=== PATIENT | male | born 1990 | race Caucasian/White ===

== ENCOUNTER 2016-04-23 07:37 | Emergency (ER) | payer SELFPAY ==
[2016-04-23 07:48] VITALS: BMI 24.0
[2016-04-23] MEDS ORDERED: ONDANSETRON HCL 4 MG ODT TAB PO ONE (07:50)
--- NOTE | 2016-04-23 08:49 | EDPRACDOC ---
- General Information Chief Complaint: Nausea,Vomiting,Diarrhea Stated Complaint: N/V Time Seen by Provider: 04/23/16 07:47 Information Source: Patient Mode Of Arrival: Car Home Medications: Home Medications Promethazine [Phenergan] 25 mg PO Q6H PRN #10 tab 04/23/16 Allergies/Adverse Reactions: Allergies Allergy/AdvReac Type Severity Reaction Status Date / Time No Known Allergies Allergy Verified 04/23/16 07:53 - History of Present Illness Onset: FRIDAY HPI: PT SAID THAT HE DEVELOPED N/V/D ON 04/21. PT SAID IT WAS A LITTLE BETTER YESTERDAY, BUT HE STILL HAD VOMITING THIS AM. PT HAD ABD PAIN ON THE , BUT NO PAIN NOW. Symptoms Occured: Reports: Spontaneous Duration: Reports: Intermittent Pain Severity: None Associated Signs and Symptoms: Reports: Nausea, Vomiting, Diarrhea Oral Intake: Decreased Urinary Output: Normal ED Past Medical History - History Reviewed No Past Medical History: Yes Patient has no past medical history - Patient Medical History Psychological History: Denies: Depression Surgical History: Reports: No Significant History - Social Medical History Smoking Status: Never smoker ETOH: None Substance Abuse: None Lives In: Home EDM Review of Systems - Review of Systems ROS Negative Except as Marked: Yes All systems reviewed and were negative except as marked Gastrointestinal: Diarrhea, Nausea, Vomiting - Physical Exam Constitutional: Alert (Awake), No apparent distress Oriented to: Time, Person, Place Last recorded Vital Signs: Last Vital Signs Temp 97.9 F 04/23/16 07:45 Pulse 90 04/23/16 07:45 Resp 18 04/23/16 07:45 BP 137/68 04/23/16 07:45 Pulse Ox 94 04/23/16 07:45 Oxygen Pulse Oxygen Saturation 94 O2 Device Room Air Oxygen Flow Rate Fraction of Inspired Oxygen ( FIO2) - HEENT Head: Normal ( normocephalic) Eye Exam: Normal (PERRL, EOMI, Sclera white) Oropharynx: Normal (Pharynx:Moist without exudate,Gums-no swelling) ENT EAC: Normal TMJ: Normal Nose: No Symptoms Reported (septum midline) Neck: Normal (FROM, trachea at midline) - Respiratory/Cardiovascular Respiratory: Normal - CTA (BBS clear to auscultation without adventitious sounds ) Cardiovascular: Normal (RRR without murmur, gallop or rub) - GI Auscultation: Normal (NABS) Palpation: Normal (Soft,No rebound or guarding, non distended) Tenderness: Non tender Victor's Sign: Negative - Musculoskeletal Back: Normal (Non-Tender) Extremities: Normal (Normal tone, Pulses 2+ No cyanosis or edema, FROM) - Re-evaluation Re-evaluation 1 Re-evaluation Time: 08:50 (TOLERATING POS) Decision Time to Discharge: 08:50 - Departure Yes I personally saw and evaluated the patient. Disposition: Home Condition: Fair Final Diagnosis: Nausea and vomiting, Dehydration, Diarrhea Instructions: Acute Diarrhea (ED), Acute Nausea and Vomiting (ED) Education/Counseling Given To: Patient Education/Counseling Given Regarding: Diagnosis, Treatment, Follow Up Referrals: None,No Provider [Primary Care Provider] - One Week Robbi Saavedra II, MD [Staff Physician] - One Week Prescriptions: New Promethazine [Phenergan] 25 mg PO Q6H PRN #10 tab PRN Reason: Nausea/Vomiting Forms: Excuse Note
[2016-04-23 08:56] VITALS: BP 121/65; PULSE 65; TEMP 97.5
== END 2016-04-23 09:03 | disposition home or self-care (01) ==
LOC: ED 07:37
DX: R11.2 Nausea with vomiting, unspecified (principal); E86.0 Dehydration; R19.7 Diarrhea, unspecified
CPT/HCPCS: 99283; J3490